=== PATIENT | male | born 1970 | race American Indian/Alaskan Native ===

== ENCOUNTER 2021-08-29 09:04 | Outpatient (CLI) | payer OTHER ==
--- NOTE | 2021-08-29 11:00 | XRay Report ---
Right ankle, 2 views HISTORY: Right ankle pain and swelling COMPARISON: None FINDINGS: No acute fracture or malalignment. Prominent Stieda process versus os trigonum noted gregg g from the posterior calcaneus. No significant arthritis. No focal soft tissue abnormality. Signer Name: Yogesh Woody MD Signed: 08/29/2021 10:55 AM Workstation Name: [id number]
--- NOTE | 2021-08-29 11:00 | XRay Report ---
Left shoulder, 3 views HISTORY: Pain after fall COMPARISON: None FINDINGS: No acute fracture or malalignment. There is no significant arthritis. No focal soft tissue abnormality. IMPRESSION: No significant abnormality of the left shoulder. Signer Name: Yogesh Woody MD Signed: 08/29/2021 10:56 AM Workstation Name: [id number]
== END 2021-08-29 09:05 | disposition home or self-care (01) ==
LOC: XRAY 09:04
PROVIDERS: ATTEND Internal Medicine
DX: M25.571 Pain in right ankle and joints of right foot (principal); M79.89 Other specified soft tissue disorders; M25.512 Pain in left shoulder